=== PATIENT | male | born 1970 ===

== ENCOUNTER 2018-01-26 09:20 | Emergency (ER) | payer MEDICAID ==
[2018-01-26 09:29] VITALS: BP 112/71; PULSE 75; RESP 18; TEMP 98.1; O2SAT 98
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
[2018-01-26] MEDS ORDERED: Tramadol 25 mg PO STA (09:53)
[2018-01-26] MEDS ORDERED: Tramadol 25 mg ONE (10:14)
== END 2018-01-26 10:18 | disposition home or self-care (01) ==
LOC: C.ER 09:20
DX: H60.90 Unspecified otitis externa, unspecified ear (principal); E11.9 Type 2 diabetes mellitus without complications

== ENCOUNTER 2018-03-12 08:54 | Emergency (ER) | payer MEDICARE, MEDICAID ==
[2018-03-12 09:10] VITALS: RESP 18; BMI 34.2
[2018-03-12] MEDS ORDERED: Sodium Chloride 0.9% 1,000 ML IV ONE (09:58)
--- NOTE | 2018-03-12 10:05 | C.PDOC ---
History Of Present Illness 47 years old male presents to ED for complaints of nausea, vomiting, fever(101), chills, diarrhea, and generalized weakness that began 3 days ago. Patient also reports left ear infection. that began 1 month ago. He states he has been taking antibiotics for the ear infection with no relief but does not recall the name of the antibiotics. Denies abdominal pain, chest pain, shortness of breath, cough, urinary symptoms, or congestion. Patient states he had an appointment with PMD today but vomiting worsened which prompted the visit. Patient also states positive sick contact at home (grand daughter and daughter). Past Surgical History: * Appendectomy Time Seen by Provider: 03/12/18 09:09 Chief Complaint (Nursing): GI Problem Past Medical History Vital Signs: Last Vital Signs Temp 98.2 F 03/12/18 09:01 Pulse 70 03/12/18 09:01 Resp 18 03/12/18 09:01 BP 126/84 03/12/18 09:01 Pulse Ox 98 03/12/18 09:01 - Medical History PMH: Arthritis, Back Problems, Diabetes, Hypercholesterolemia Surgical History: Appendectomy - [facility] Procedures INCIS W REM OF FORIEGN BODY OR DEV FROM SKIN & SUBCUT TISSUE (07/14/12) INJECT/INFUSE NEC (02/12/13) Family History: States: Unknown Family Hx - Social History Hx Tobacco Use: No Hx Alcohol Use: No Hx Substance Use: No - Immunization History Hx Tetanus Toxoid Vaccination: No Hx Influenza Vaccination: Yes Hx Pneumococcal Vaccination: No ED Course And Treatment - Laboratory Results Result Diagrams: 03/12/18 10:03 03/12/18 10:03 O2 Sat by Pulse Oximetry: 98 Disposition - Disposition Forms: [employer] (Thai)
[2018-03-12 10:13] LABS: BASO # 0.1 K/uL (0.0-0.2); BASO % 0.6 % (0.0-2.0); EOS # 0.1 K/uL (0.0-0.7); EOS % 0.6 % (0.0-4.0); HEMOGLOBIN 14.4 g/dL (12.0-18.0); LYMPH # 2.6 K/uL (1.0-4.3); LYMPH % 27.3 % (20.0-40.0); MEAN CORPUSCULAR HEMOGLOBIN 29.1 pg (27.0-31.0); MEAN CORPUSCULAR HGB CONC 33.4 g/dL (33.0-37.0); MEAN PLATELET VOLUME 9.6 fL (7.2-11.7); MONO # 0.7 K/uL (0.0-0.8); MONO % 6.9 % (0.0-10.0); NEUT # 6.1 K/uL (1.8-7.0); NEUT % 64.6 % (50.0-75.0); NRBC % 0.1 % (0.0-2.0); RBC 4.94 Mil/uL (4.40-5.90); RED CELL DISTRIBUTION WIDTH 14.2 % (11.5-14.5); WHITE BLOOD COUNT 9.5 K/uL (4.8-10.8)
[2018-03-12 10:14] LABS: MEAN CELL VOLUME 87.4 fL (80.0-94.0)
[2018-03-12 10:20] LABS: SQUAMOUS EPITHIAL 2 /hpf (0-5); URINE BILIRUBIN NEGATIVE (NEGATIVE); URINE BLOOD NEGATIVE (NEGATIVE); URINE CLARITY Clear (Clear); URINE COLOR Yellow (YELLOW); URINE LEUKOCYTE ESTERASE NEG Leu/uL (Negative); URINE PROTEIN 1+ mg/dL (NEGATIVE); URINE UROBILINOGEN NORMAL mg/dL (0.2-1.0)
[2018-03-12 10:22] LABS: URINE GLUCOSE (UA) 3+ mg/dL (Normal)
[2018-03-12 10:23] LABS: ALB/GLOB RATIO 1.5 (1.0-2.1); ALBUMIN 4.6 g/dL (3.5-5.0); ALT/SGPT 52 U/L (21-72); AST/SGOT 31 U/L (17-59); BLOOD UREA NITROGEN 18 mg/dL (9-20); CALCIUM 8.8 mg/dl (8.6-10.4); GFR NON-AFRICAN AMERICAN > 60; LIPASE 63 U/L (23-300)
[2018-03-12] MEDS ORDERED: Sodium Chloride 0.9% 1,000 ML ONE (10:46)
--- NOTE | 2018-03-12 10:49 | C.PDOC ---
History Of Present Illness 47 years old male presents to ED for complaints of nausea, vomiting, fever(101), chills, diarrhea, and generalized weakness that began 3 days ago. Patient also reports left ear infection. that began 1 month ago. He states he has been taking antibiotics for the ear infection with no relief but does not recall the name of the antibiotics. Denies abdominal pain, chest pain, shortness of breath, cough, urinary symptoms, or congestion. Patient states he had an appointment with PMD today but vomiting worsened which prompted the visit. Patient also states positive sick contact at home (grand daughter and daughter). Past Surgical History: * Appendectomy PMD: * Dr. Westley Perales Time Seen by Provider: 03/12/18 09:09 Chief Complaint (Nursing): GI Problem History Per: Patient History/Exam Limitations: no limitations Onset/Duration Of Symptoms: Days (3) Current Symptoms Are (Timing): Still Present Recent travel outside of the [place]: No Past Medical History Reviewed: Historical Data, Nursing Documentation, Vital Signs Vital Signs: Last Vital Signs Temp 98.2 F 03/12/18 09:01 Pulse 70 03/12/18 09:01 Resp 18 03/12/18 09:01 BP 126/84 03/12/18 09:01 Pulse Ox 98 03/12/18 09:01 - Medical History PMH: Arthritis, Back Problems, Diabetes, Hypercholesterolemia Surgical History: Appendectomy - [facility] Procedures INCIS W REM OF FORIEGN BODY OR DEV FROM SKIN & SUBCUT TISSUE (07/14/12) INJECT/INFUSE NEC (02/12/13) Family History: States: Unknown Family Hx - Social History Hx Tobacco Use: No Hx Alcohol Use: No Hx Substance Use: No - Immunization History Hx Tetanus Toxoid Vaccination: No Hx Influenza Vaccination: Yes Hx Pneumococcal Vaccination: No Review Of Systems Except As Marked, All Systems Reviewed And Found Negative. Constitutional: Positive for: Fever, Chills, Weakness ENT: Positive for: Other (Left ear infection ) Gastrointestinal: Positive for: Nausea, Vomiting, Diarrhea Physical Exam - Physical Exam Appears: Well, Non-toxic, No Acute Distress Skin: Normal Color, Warm, Dry, No Rash Head: Atraumatic, Normacephalic Eye(s): bilateral: Normal Inspection, PERRL, EOMI Ear(s): Left: Other (Pus ), Right: Normal Oral Mucosa: Moist Throat: Normal, No Erythema, No Exudate, No Drooling, No Mass Neck: Normal ROM, Supple Chest: Symmetrical, No Tenderness Cardiovascular: Rhythm Regular, No Murmur Respiratory: Normal Breath Sounds, No Rales, No Rhonchi, No Wheezing Gastrointestinal/Abdominal: Bowel Sounds (Active ), Soft, No Tenderness, No Guarding, No Rebound Extremity: Normal ROM Extremity: Bilateral: Atraumatic, Normal Color And Temperature, Normal ROM Pulses: Left Radial: Normal, Right Radial: Normal Neurological/Psych: Oriented x3, Normal Speech Gait: Steady ED Course And Treatment - Laboratory Results Result Diagrams: 03/12/18 10:03 03/12/18 10:03 Lab Results: Total Bilirubin 0.6 mg/dL (0.2-1.3) 03/12/18 10:03 AST 31 U/L (17-59) 03/12/18 10:03 ALT 52 U/L (21-72) 03/12/18 10:03 Alkaline Phosphatase 97 U/L (38-126) 03/12/18 10:03 Total Protein 7.6 g/dL (6.3-8.3) 03/12/18 10:03 Albumin 4.6 g/dL (3.5-5.0) 03/12/18 10:03 Globulin 3.1 gm/dL (2.2-3.9) 03/12/18 10:03 Albumin/Globulin Ratio 1.5 (1.0-2.1) 03/12/18 10:03 Lipase 63 U/L (23-300) 03/12/18 10:03 Urine Color Yellow (YELLOW) 03/12/18 10:03 Urine Clarity Clear (Clear) 03/12/18 10:03 Urine pH 5.0 (5.0-8.0) 03/12/18 10:03 Ur Specific B[place] 1.036 (1.003-1.030) H 03/12/18 10:03 Urine Protein 1+ mg/dL (NEGATIVE) H 03/12/18 10:03 Urine Glucose (UA) 3+ mg/dL (Normal) H 03/12/18 10:03 Urine Ketones Negative mg/dL (NEGATIVE) 03/12/18 10:03 Urine Blood Negative (NEGATIVE) 03/12/18 10:03 Urine Nitrate Negative (NEGATIVE) 03/12/18 10:03 Urine Bilirubin Negative (NEGATIVE) 03/12/18 10:03 Urine Urobilinogen Normal mg/dL (0.2-1.0) 03/12/18 10:03 Ur Leukocyte Esterase Neg Alesia/uL (Negative) 03/12/18 10:03 Urine WBC (Auto) 3 /hpf (0-5) 03/12/18 10:03 Urine RBC (Auto) 1 /hpf (0-3) 03/12/18 10:03 Ur Squamous Epith Cells 2 /hpf (0-5) 03/12/18 10:03 O2 Sat by Pulse Oximetry: 98 (RA) Pulse Ox Interpretation: Normal Medical Decision Making Medical Decision Making: Plan: * IV Fluids * Blood work * Urinalysis Patient reassessed, results d/w him, states he feels better and is ready to go home. Disposition Counseled Patient/Family Regarding: Studies Performed, Diagnosis, Need For Followup - Disposition Disposition: HOME/ ROUTINE Disposition Time: 12:02 Condition: STABLE Additional Instructions: ROBERT CARREON, thank you for letting us take care of you today. Your provider was Nedra Khan MD and you were treated for VOMITNG/WEAKNESS. The emergency medical care you received today was directed at your acute symptoms. If you were prescribed any medication, please fill it and take as directed. It may take several days for your symptoms to resolve. Return to the Emergency Department if your symptoms worsen, do not improve, or if you have any other problems. Please contact your doctorin 1-2 days for a follow up appointment. Bring any paperwork you were given at discharge with you along with any medications you are taking to your follow up visit. Our treatment cannot replace ongoing medical care by a primary care provider outside of the emergency department. Thank you for allowing the [facility] team to be part of your care today. Instructions: Diarrhea in Adolescents and Adults, Clear Liquid Diet, Hyperglycemia, Adult (DC), Nausea and Vomiting, Adult (DC) Forms: [employer] (Nepalese), General Discharge Instructions - POA Present On Arrival: None - Clinical Impression Clinical Impression: Vomiting, Diarrhea, Hyperglycemia - Scribe Statement The provider has reviewed the documentation as recorded by the Scribe Zachery Ram All medical record entries made by the Scribe were at my direction and personally dictated by me. I have reviewed the chart and agree that the record accurately reflects my personal performance of the history, physical exam, medical decision making, and the department course for this patient. I have also personally directed, reviewed, and agree with the discharge instructions and disposition.
[2018-03-12 11:40] VITALS: BP 127/83; PULSE 69; TEMP 98.6
[2018-03-12 12:05] VITALS: O2SAT 98
== END 2018-03-12 12:25 | disposition home or self-care (01) ==
LOC: C.ER 08:54
DX: R11.10 Vomiting, unspecified (principal); R19.7 Diarrhea, unspecified; E11.65 Type 2 diabetes mellitus with hyperglycemia

== ENCOUNTER 2018-07-14 04:51 | Emergency (ER) | payer MEDICARE, MEDICAID ==
[2018-07-14 04:54] VITALS: BMI 34.2
[2018-07-14 05:11] VITALS: BP 125/87; PULSE 86; RESP 20; TEMP 98.2; O2SAT 98
--- NOTE | 2018-07-14 05:41 | C.PDOC ---
History Of Present Illness 48 year old male presents to the ED for evaluation of an abscess to his left axilla. Patient reports he was supposed to see his PMD Dr. Perales for drainage but the office was closed. Patient reports pain worsened and presented to the ED for eval. Patient denies feverm chills, rash, injury, fall, trauma, weakness, numbness. Time Seen by Provider: 07/14/18 05:18 Chief Complaint (Nursing): Abnormal Skin Integrity History Per: Patient History/Exam Limitations: no limitations Onset/Duration Of Symptoms: Days Current Symptoms Are (Timing): Still Present Location Of Injury: Left: Arm Quality Of Symptoms: Painful, Swollen Recent travel outside of the [place]: No Additional History Per: Patient Past Medical History Reviewed: Historical Data, Nursing Documentation, Vital Signs Vital Signs: Last Vital Signs Temp 98.2 F 07/14/18 05:02 Pulse 86 07/14/18 05:02 Resp 20 07/14/18 05:02 BP 125/87 07/14/18 05:02 Pulse Ox 98 07/14/18 05:02 Primary Care Provider: Westley Perales - Medical History PMH: Arthritis, Back Problems, Diabetes, Hypercholesterolemia Surgical History: Appendectomy - [facility] Procedures INCIS W REM OF FORIEGN BODY OR DEV FROM SKIN & SUBCUT TISSUE (07/14/12) INJECT/INFUSE NEC (02/12/13) Family History: States: Unknown Family Hx - Social History Hx Tobacco Use: No Hx Alcohol Use: No Hx Substance Use: No - Immunization History Hx Tetanus Toxoid Vaccination: Yes Hx Influenza Vaccination: No Hx Pneumococcal Vaccination: No Review Of Systems Constitutional: Negative for: Fever, Chills Respiratory: Negative for: Cough, Shortness of Breath Gastrointestinal: Negative for: Nausea, Vomiting, Abdominal Pain Musculoskeletal: Positive for: Arm Pain Skin: Positive for: Other (abscess). Negative for: Rash Neurological: Negative for: Weakness, Numbness, Headache Physical Exam - Physical Exam Appears: Non-toxic, No Acute Distress Skin: Normal Color, Warm, Dry, Other (left axilla, small infected folicular abscess with pustule at the center, Large area of induration with opened center and scab at the center. Slight drainage. NO fluctuance no streaking ) Head: Atraumatic, Normacephalic Eye(s): bilateral: Normal Inspection Neck: Normal ROM, Supple Chest: Symmetrical Cardiovascular: Rhythm Regular Respiratory: Normal Breath Sounds, No Rales, No Rhonchi, No Wheezing Extremity: Normal ROM Neurological/Psych: Oriented x3, Normal Speech, Normal Cognition Gait: Steady ED Course And Treatment O2 Sat by Pulse Oximetry: 98 (ON RA) Pulse Ox Interpretation: Normal Progress Note: Patient was instructed that I&D is not indicated at this time as the abscess self drained. Patient advised to place warm compresses to the area, take antibiotics. Wound check in 2 days Reassessment Condition: Improved Disposition Counseled Patient/Family Regarding: Diagnosis, Need For Followup, Rx Given - Disposition Referrals: Westley Perales MD [Staff Provider] - Disposition: HOME/ ROUTINE Disposition Time: 05:33 Condition: STABLE Additional Instructions: Apply warm compress to area Take meds as directed Please follow up with us or Dr perales in e days for wound check Return to ER if worse Prescriptions: Cephalexin [Keflex] 500 mg PO Q6 #28 capsule Ibuprofen [Motrin Tab] 800 mg PO QID #24 tab Sulfamethoxazole/Trimethoprim [Bactrim DS 800 mg-160 mg] 1 tab PO BID #14 tab Instructions: Boil (DC), Abscess Incision and Drainage (DC) Forms: [employer] (Estonian) - Clinical Impression Clinical Impression: Abscess - 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 - Scribe Statement The provider has reviewed the documentation as recorded by the Scribe Dante Urena All medical record entries made by the Scribe were at my direction and personally dictated by me. I have reviewed the chart and agree that the record accurately reflects my personal performance of the history, physical exam, medical decision making, and the department course for this patient. I have also personally directed, reviewed, and agree with the discharge instructions and disposition.
== END 2018-07-14 05:32 | disposition home or self-care (01) ==
LOC: C.ER 04:51
DX: L02.412 Cutaneous abscess of left axilla (principal); E78.00 Pure hypercholesterolemia, unspecified; E11.9 Type 2 diabetes mellitus without complications